=== PATIENT | male | born 1980 | race Hispanic/Latino ===

== ENCOUNTER 2018-09-24 02:47 | Emergency (ER) | payer OTHER ==
[2018-09-24] MEDS ORDERED: CEFTRIAXONE SODIUM 1 GM ONE (03:40)
[2018-09-24] MEDS ORDERED: SODIUM CHLORIDE 0.9% 50 ML IV ONE (03:40)
[2018-09-24] MEDS ORDERED: KETOROLAC TROMETHAMINE 30MG/ML ONE (03:40)
[2018-09-24 03:43] LABS: BASOPHILS % (AUTO) 0.4 % (0.0-5.0); EOSINOPHILS % (AUTO) 1.4 % (0.0-8.0); HEMATOCRIT 41.5 % (42-54); LYMPHOCYTES % (AUTO) 24.2 % (21.0-51.0); MEAN CORPUSCULAR HEMOGLOBIN 28.3 pg (27.0-33.0); MEAN CORPUSCULAR HGB CONC 33.1 g/dL (32.0-36.0); MEAN CORPUSCULAR VOLUME 85.5 fL (79-99); MONOCYTES % (AUTO) 7.4 % (3.0-13.0); NEUTROPHILS % (AUTO) 66.6 % (40.0-77.0); NUCLEATED RED BLOOD CELLS 0.1 % (0.0-0.19); PLATELET COUNT (AUTO) 167 K/uL (130-400); RED BLOOD CELL COUNT(AUTO) 4.86 MIL/uL (4.50-6.20); RED CELL DISTRIBUTION WIDTH 12.4 % (11.0-15.5); WHITE BLOOD COUNT (AUTO) 11.2 K/uL (4.8-10.8)
[2018-09-24 03:50] LABS: CREATININE 0.9 mg/dL (0.5-1.5); POTASSIUM 3.6 mmol/L (3.5-5.1)
== END 2018-09-24 04:27 | disposition home or self-care (01) ==
LOC: EDH 02:47
DX: M10.072 Idiopathic gout, left ankle and foot (principal)
CPT/HCPCS: 36415; 80048; 85025; 96374; 96375; 99284; J0696; J1885

== ENCOUNTER 2019-08-08 20:25 | Emergency (ER) | payer OTHER ==
[2019-08-08] MEDS ORDERED: ASPIRIN 325MG EC TAB 325 MG TABLET.DR PO ONE (20:47)
[2019-08-08 21:01] LABS: BASOPHILS % (AUTO) 0.8 % (0.0-5.0); EOSINOPHILS % (AUTO) 0.4 % (0.0-8.0); HEMATOCRIT 40.9 % (42-54); LYMPHOCYTES % (AUTO) 19.6 % (21.0-51.0); MEAN CORPUSCULAR HEMOGLOBIN 28.9 pg (27.0-33.0); MEAN CORPUSCULAR HGB CONC 33.9 g/dL (32.0-36.0); MEAN CORPUSCULAR VOLUME 85.3 fL (79-99); MONOCYTES % (AUTO) 6.3 % (3.0-13.0); NEUTROPHILS % (AUTO) 72.9 % (40.0-77.0); NUCLEATED RED BLOOD CELLS 0.1 % (0.0-0.19); PLATELET COUNT (AUTO) 201 K/uL (130-400); RED BLOOD CELL COUNT(AUTO) 4.79 MIL/uL (4.50-6.20); RED CELL DISTRIBUTION WIDTH 12.7 % (11.0-15.5); WHITE BLOOD COUNT (AUTO) 13.4 K/uL (4.8-10.8)
[2019-08-08 21:11] LABS: CREATININE 1.1 mg/dL (0.5-1.5); POTASSIUM 3.2 mmol/L (3.5-5.1)
== END 2019-08-08 23:40 | disposition home or self-care (01) ==
LOC: EDH 20:25
DX: J98.01 Acute bronchospasm (principal); R07.89 Other chest pain; E78.00 Pure hypercholesterolemia, unspecified
CPT/HCPCS: 36415; 71045; 80048; 84484; 85025; 85378; 93005

== ENCOUNTER 2021-04-20 17:59 | Inpatient (IN) | payer SELFPAY ==
[~2021-04-20] VITALS: Ht 160 cm; Wt 94.8 kg
[~2021-04-20 17:59] MED LIST: PHARMACY COMMUNICATION MISC SCH
[2021-04-20 19:13] LABS: BASOPHILS % (AUTO) 0.5 % (0.0-5.0); EOSINOPHILS % (AUTO) 1.6 % (0.0-8.0); HEMATOCRIT 40.7 % (42-54); LYMPHOCYTES % (AUTO) 34.8 % (21.0-51.0); MEAN CORPUSCULAR HEMOGLOBIN 28.4 pg (27.0-33.0); MEAN CORPUSCULAR HGB CONC 33.7 g/dL (32.0-36.0); MEAN CORPUSCULAR VOLUME 84.3 fL (79-99); NEUTROPHILS % (AUTO) 54.8 % (40.0-77.0); PLATELET COUNT (AUTO) 192 K/uL (130-400); RED BLOOD CELL COUNT(AUTO) 4.83 MIL/uL (4.50-6.20); RED CELL DISTRIBUTION WIDTH 12.3 % (11.0-15.5); WHITE BLOOD COUNT (AUTO) 8.6 K/uL (4.8-10.8)
[2021-04-20 19:28] LABS: INR 0.98 (0.85-1.15); PROTHROMBIN TIME 10.7 SEC (9.6-11.6)
[2021-04-20 19:29] LABS: PARTIAL THROMBOPLASTIN TIME 25.3 SEC (26.3-35.5)
[2021-04-20 19:32] LABS: ALBUMIN 3.9 g/dL (3.5-5.0); BILIRUBIN,TOTAL 0.3 mg/dL (0.2-1.0); POTASSIUM 3.4 mmol/L (3.5-5.1); TOTAL PROTEIN, SERUM 7.6 g/dL (6.0-8.3)
[2021-04-20 19:34] LABS: B-TYPE NATRIURETIC PEPTIDE 5 pg/mL (0-100)
[2021-04-20 20:17] LABS: APPEARANCE,URINE Clear (CLEAR); BILIRUBIN,URINE Negative (NEGATIVE); COLOR,URINE Yellow (YELLOW); GLUCOSE, URINE (UA) Negative (NEGATIVE); KETONES,URINE Negative (NEGATIVE); LEUKOCYTE ESTERASE ,URINE Negative (NEGATIVE); NITRATE,URINE Negative (NEGATIVE); OCCULT BLOOD,URINE Negative (NEGATIVE); PH,URINE 6.5 (5.0-8.0); PROTEIN,URINE Negative (NEGATIVE)
[2021-04-20 20:24] LABS: AMPHET/METH SCREEN,URINE NEGATIVE (NEGATIVE); BARBITURATE SCREEN, URINE NEGATIVE (NEGATIVE); BENZODIAZEPINES SCREEN,URINE NEGATIVE (NEGATIVE); CANNABINOID SCREEN,URINE NEGATIVE (NEGATIVE); COCAINE SCREEN,URINE NEGATIVE (NEGATIVE); OPIATE SCREEN,URINE NEGATIVE (NEGATIVE); PHENCYCLIDINE SCREEN,URINE NEGATIVE (NEGATIVE)
[2021-04-20] MEDS ORDERED: MORPHINE SULFATE 2 MG/ML 1ML SYG IV PRN (21:30)
[2021-04-20] MEDS: SODIUM CHLORIDE 0.9% 1000ML 1,000 ML IV SCH (21:30)
[2021-04-20] MEDS ORDERED: ACETAMINOPHEN 325 MG TAB PO PRN ×2 (21:30)
[2021-04-20] MEDS ORDERED: ONDANSETRON HCL 4 MG/2 ML VIAL IV PRN (21:30)
[2021-04-20 21:56] LABS: CHOLESTEROL 169 mg/dL (<200); HDL CHOLESTEROL 38 mg/dL (29-71); LDL DIRECT 95 mg/dL (0-99); TRIGLYCERIDES 377 mg/dL (30-200)
[2021-04-20] MEDS ORDERED: SODIUM CHLORIDE 0.9% 1000ML 1,000 ML IV ONE (22:45)
[2021-04-21] MEDS ORDERED: NITROGLYCERIN 0.4 MG SL TAB SL PRN (03:45)
[2021-04-21 06:24] LABS: BASOPHILS % (AUTO) 0.5 % (0.0-5.0); EOSINOPHILS % (AUTO) 1.5 % (0.0-8.0); HEMATOCRIT 40.7 % (42-54); LYMPHOCYTES % (AUTO) 31.4 % (21.0-51.0); MEAN CORPUSCULAR HEMOGLOBIN 28.2 pg (27.0-33.0); MEAN CORPUSCULAR HGB CONC 32.9 g/dL (32.0-36.0); MEAN CORPUSCULAR VOLUME 85.7 fL (79-99); MONOCYTES % (AUTO) 8.1 % (3.0-13.0); NEUTROPHILS % (AUTO) 58.2 % (40.0-77.0); PLATELET COUNT (AUTO) 182 K/uL (130-400); RED BLOOD CELL COUNT(AUTO) 4.75 MIL/uL (4.50-6.20); RED CELL DISTRIBUTION WIDTH 12.3 % (11.0-15.5); WHITE BLOOD COUNT (AUTO) 7.8 K/uL (4.8-10.8)
[2021-04-21] MEDS: SODIUM CHLORIDE 0.9% 1000ML 1,000 ML IV SCH (07:30)
[2021-04-21 07:36] LABS: ERYTHROCYTE SEDIMENTATION RATE 1 MM/HR (0-15)
[2021-04-21] MEDS ORDERED: ENOXAPARIN SODIUM 100 MG/1 ML SQ ONE (08:58)
[2021-04-21] MEDS ORDERED: ASPIRIN 81MG TAB.CHEW ONE (08:58)
[2021-04-21] MEDS ORDERED: METOPROLOL TARTRATE 25 MG TAB ONE (08:59)
[2021-04-21] MEDS ORDERED: ATORVASTATIN CALCIUM 10 MG TABLET ONE (08:59)
[2021-04-21] MEDS ORDERED: FAMOTIDINE/PF 20 MG/2 ML VIAL IV ONE (08:59)
[2021-04-21] MEDS ORDERED: ENOXAPARIN SODIUM 100 MG/1 ML SQ SCH (09:00)
[2021-04-21] MEDS: ATORVASTATIN CALCIUM 10 MG TABLET PO SCH (09:00)
[2021-04-21] MEDS: FAMOTIDINE/PF 20 MG/2 ML VIAL IV SCH ×2 (09:00→20:48)
[2021-04-21] MEDS: METOPROLOL TARTRATE 25 MG TAB PO SCH ×2 (09:00→20:49)
[2021-04-21] MEDS: ASPIRIN 81MG TAB.CHEW PO SCH (09:00)
[2021-04-21] MEDS ORDERED: ASPIRIN 325 MG TABLET PO SCH (09:00)
[2021-04-21 12:00] VITALS: BP 127/72
[2021-04-21] MEDS ORDERED: FENOFIBRATE NANOCRYSTALLIZED 145 MG TAB PO SCH (16:00)
[2021-04-21 16:38] VITALS: BP 114/72
[2021-04-21 19:25] VITALS: BP 127/72
[2021-04-21] MEDS: FENOFIBRATE NANOCRYSTALLIZED 145 MG TAB PO SCH (20:49)
[2021-04-21 23:35] VITALS: BP 121/72
[2021-04-22 03:40] VITALS: BP 113/71
[2021-04-22 04:40] LABS: MEAN CORPUSCULAR HEMOGLOBIN 28.3 pg (27.0-33.0); MEAN CORPUSCULAR VOLUME 85.7 fL (79-99); RED BLOOD CELL COUNT(AUTO) 4.67 MIL/uL (4.50-6.20); RED CELL DISTRIBUTION WIDTH 12.4 % (11.0-15.5); WHITE BLOOD COUNT (AUTO) 7.3 K/uL (4.8-10.8)
[2021-04-22 04:57] LABS: ALBUMIN 3.6 g/dL (3.5-5.0); BILIRUBIN,TOTAL 0.5 mg/dL (0.2-1.0); CREATININE 1.1 mg/dL (0.5-1.5); POTASSIUM 3.8 mmol/L (3.5-5.1); TOTAL PROTEIN, SERUM 7.3 g/dL (6.0-8.3)
[2021-04-22 07:30] VITALS: BP 115/76
[2021-04-22] MEDS: FAMOTIDINE/PF 20 MG/2 ML VIAL IV SCH ×2 (08:31→19:24)
[2021-04-22] MEDS: METOPROLOL TARTRATE 25 MG TAB PO SCH ×2 (08:32→19:25)
[2021-04-22] MEDS: ASPIRIN 81MG TAB.CHEW PO SCH (08:32)
[2021-04-22] MEDS: ENOXAPARIN SODIUM 40 MG/0.4 ML SYRINGE SQ SCH (08:32)
[2021-04-22] MEDS: ATORVASTATIN CALCIUM 10 MG TABLET PO SCH (08:32)
[2021-04-22 11:00] VITALS: BP 129/72
[2021-04-22 16:00] VITALS: BP 134/70
[2021-04-22] MEDS: FENOFIBRATE NANOCRYSTALLIZED 145 MG TAB PO SCH (19:24)
[2021-04-22 20:26] VITALS: BP 139/80
[2021-04-22 23:46] VITALS: BP 124/74
[2021-04-23 04:14] VITALS: BP 129/78
[2021-04-23 04:19] LABS: HEMATOCRIT 40.2 % (42-54); MEAN CORPUSCULAR HEMOGLOBIN 28.2 pg (27.0-33.0); MEAN CORPUSCULAR HGB CONC 33.3 g/dL (32.0-36.0); MEAN CORPUSCULAR VOLUME 84.5 fL (79-99); RED BLOOD CELL COUNT(AUTO) 4.76 MIL/uL (4.50-6.20); RED CELL DISTRIBUTION WIDTH 12.1 % (11.0-15.5)
[2021-04-23 04:28] LABS: POTASSIUM 4.3 mmol/L (3.5-5.1)
[2021-04-23 04:29] LABS: HEMOGLOBIN A1C 5.6 % (4.0-6.0)
[2021-04-23 08:24] VITALS: BP 121/74
[2021-04-23] MEDS ORDERED: REGADENOSON 0.4 MG/5 ML PF SYG IVP SCH (09:00)
[2021-04-23 11:50] VITALS: BP 121/71
[2021-04-23] MEDS: FAMOTIDINE/PF 20 MG/2 ML VIAL IV SCH (13:24)
[2021-04-23] MEDS: ASPIRIN 81MG TAB.CHEW PO SCH (13:24)
[2021-04-23] MEDS: ATORVASTATIN CALCIUM 10 MG TABLET PO SCH (13:24)
[2021-04-23] MEDS: METOPROLOL TARTRATE 25 MG TAB PO SCH (13:24)
[2021-04-23] MEDS: ENOXAPARIN SODIUM 40 MG/0.4 ML SYRINGE SQ SCH (13:25)
[2021-04-23] MEDS ORDERED: FENO145T PO (16:50)
[2021-04-23] MEDS ORDERED: ATOR10 PO (16:50)
[2021-04-23] MEDS ORDERED: METO25 PO (16:51)
[2021-04-23] MEDS ORDERED: ASPI-1005 PO (16:51)
== END 2021-04-23 18:15 | disposition home or self-care (01) | DRG 313 ==
LOC: EDH 17:59 → OBSVTOIN 18:00 → EDHIP 18:00 → 4BH 04-21 10:27
PROVIDERS: ADMIT Family Medicine; ATTEND Family Medicine
DX: R07.9 Chest pain, unspecified (principal); R73.03 Prediabetes; L83 Acanthosis nigricans; E78.1 Pure hyperglyceridemia; E66.9 Obesity, unspecified; E78.00 Pure hypercholesterolemia, unspecified; E78.5 Hyperlipidemia, unspecified; Z68.37 Body mass index [BMI] 37.0-37.9, adult; Z82.49 Family history of ischemic heart disease and other diseases of the circulatory system
CPT/HCPCS: 36415; 70450; 71045; 72125; 73030; 78452; 80048; 80053; 80061; 80305; 81003; 82550; 83036; 83690; 83880; 84484; 85025; 85027; 85610; 85651; 85730; 86140; 93005; 93017; 93306; 93356; 93971; 96374; A9500; G0378; J1650; J2785; J3490; J7030